=== PATIENT | male | born 1930 | race Caucasian/White ===

== ENCOUNTER 2017-02-26 10:10 | Emergency (ER) | payer MEDICARE, OTHER ==
--- NOTE | 2017-02-26 10:27 | ED Physician Documentation ---
General Adult - HPI Stated Complaint: Hypotension Chief Complaint: General Adult Additional Information: sent from [place] with low systolic BP. Stated as "70's" , he has no complaints and doesn't understand why they called the ambulance. Must have some dementia, No complaints Onset: minutes Timing: better, gone now Severity: mild Further Comments: no - ROS CONST: no problems EYES/ENT: none CVS/RESP: none GI/: none MS/SKIN/LYMPH: none NEURO/PSYCH: denies: headache, fainting, dizziness, numbness, difficulty with speech - PAST HX Past History: CHF, hypertension Other History: diabetes Type 1 Surgeries/Procedures: none Immunizations: UTD Allergies/Adverse Reactions: Allergies Allergy/AdvReac Type Severity Reaction Status Date / Time No Known Allergies Allergy Verified 05/11/16 14:17 Home Medications: Ambulatory Orders Medication Instructions Recorded Acetaminophen [Tylenol] 1 - 2 tab PO Q4-6 PRN 08/30/16 Aspirin [Cj] 81 mg PO DAILY 08/30/16 Atenolol [Tenormin] 12.5 mg PO BID 08/30/16 Ferrous Sulfate [Feosol] 325 mg PO BID 08/30/16 Furosemide [Lasix] 20 mg PO DAILY 08/30/16 Insulin Glargine,Hum.rec.anlog 10 unit SQ HS 08/30/16 [Lantus Solostar] Insulin Regular, Human [Novolin R] 10 unit IJ AM 08/30/16 Insulin Regular, Human [Novolin R] 15 unit IJ 12 08/30/16 Insulin Regular, Human [Novolin R] 15 unit IJ 17 08/30/16 Isosorbide Mononitrate [Imdur] 30 mg PO DAILY 08/30/16 Levothyroxine Sodium [Synthroid] 50 mcg PO 07 08/30/16 Lisinopril [Prinivil] 2.5 mg PO HS 08/30/16 Multivitamin [Tab-A-Amol] 1 each PO DAILY 08/30/16 Nitroglycerin [Nitroquick] 0.4 mg SL Q5M PRN 08/30/16 Zearing-3 Fatty Acids/Fish Oil [Fish 1 each PO BID 08/30/[address] 1,000 mg Softgel] Polyethylene Glycol 3350 [Miralax] 17 gm PO 1100 08/30/16 Pravastatin Sodium [Pravachol] 20 mg PO HS 08/30/16 gliPIZIDE [Glucotrol] 5 mg PO 0730 08/30/16 traMADol HCL [Ultram] 50 mg PO Q6H PRN 08/30/16 Amlodipine Besylate [Amlodipine 5 mg PO DAILY 02/26/17 Besylate] Clopidogrel Bisulfate [Clopidogrel] 75 mg PO DAILY 02/26/17 Ondansetron HCl Rapdis [Zofran Odt] 4 mg PO Q4 PRN 02/26/17 - SOCIAL HX Smoking History: non-smoker Alcohol Use: none Drug Use: none - FAMILY HX Family History: No - VITAL SIGNS Vital Signs: Vital Signs Temp Pulse Resp BP Pulse Ox 97.1 F L 64 18 122/59 96 02/26/17 10:10 02/26/17 10:10 02/26/17 10:10 02/26/17 10:10 02/26/17 10:10 - REVIEWED ASSESSMENTS Nursing Assessment Reviewed: Yes Vitals Reviewed: Yes ED Results Lab/Radiology - Lab Results Lab Results: UA = WBC +++ , + nitrites, BNP 956 - Orders Orders: ED Orders Category Date Time Status Place Saline Lock/IV Now Care 02/26/17 10:22 Ordered BNP [NT-proBNP] Stat Lab 02/26/17 Ordered CBC/PLATELET/DIFF Routine Lab 02/26/17 Ordered CMP Routine Lab 02/26/17 Ordered CREATINE KINASE Routine Lab 02/26/17 Ordered URINALYSIS Routine Lab 02/26/17 Ordered RINGERS SOLUTION,LACTATED @ 100 MLS/HR(1000ml) Med 02/26/17 10:30 Ordered Lactated Ringers [Ringers, Lactated] 1,000 ml IV Q10H General Adult Physical Exam - PHYSICAL EXAM GENERAL APPEARANCE: no distress EENT: eye inspection normal, ENT inspection normal, pharynx normal, no signs of dehydration NECK: normal inspection, supple. No: carotid bruit RESPIRATORY: no resp distress, breath sounds normal CVS: reg rate & rhythm, equal pulses ABDOMEN: soft, no distension SKIN: warm/dry, normal color EXTREMITIES: non-tender NEURO: oriented X3 Discharge Clincal Impression: Elevated brain natriuretic peptide (BNP) level, Hyperglycemia due to type 1 diabetes mellitus, Catheter (urine) change required UTI (urinary tract infection) Qualifiers: Urinary tract infection type: catheter-associated UTI Indwelling urinary catheter type: indwelling urethral catheter Encounter type: initial encounter Qualified Code(s): T83.511A - Infection and inflammatory reaction due to indwelling urethral catheter, initial encounter; N39.0 - Urinary tract infection , site not specified Home Medications: Ambulatory Orders Acetaminophen [Tylenol] 1 - 2 tab PO Q4-6 PRN 08/30/16 Aspirin [Cj] 81 mg PO DAILY 08/30/16 Atenolol [Tenormin] 12.5 mg PO BID 08/30/16 Ferrous Sulfate [Feosol] 325 mg PO BID 08/30/16 Furosemide [Lasix] 20 mg PO DAILY 08/30/16 Insulin Glargine,Hum.rec.anlog [Lantus Solostar] 10 unit SQ HS 08/30/16 Insulin Regular, Human [Novolin R] 10 unit IJ AM 08/30/16 Insulin Regular, Human [Novolin R] 15 unit IJ 12 08/30/16 Insulin Regular, Human [Novolin R] 15 unit IJ 17 08/30/16 Isosorbide Mononitrate [Imdur] 30 mg PO DAILY 08/30/16 Levothyroxine Sodium [Synthroid] 50 mcg PO 07 08/30/16 Lisinopril [Prinivil] 2.5 mg PO HS 08/30/16 Multivitamin [Tab-A-Amol] 1 each PO DAILY 08/30/16 Nitroglycerin [Nitroquick] 0.4 mg SL Q5M PRN 08/30/16 Zearing-3 Fatty Acids/Fish Oil [Fish Oil Dr 1,000 mg Softgel] 1 each PO BID Polyethylene Glycol 3350 [Miralax] 17 gm PO 1100 08/30/16 Pravastatin Sodium [Pravachol] 20 mg PO HS 08/30/16 gliPIZIDE [Glucotrol] 5 mg PO 0730 08/30/16 traMADol HCL [Ultram] 50 mg PO Q6H PRN 08/30/16 Amlodipine Besylate [Amlodipine Besylate] 5 mg PO DAILY 02/26/17 Clopidogrel Bisulfate [Clopidogrel] 75 mg PO DAILY 02/26/17 Ondansetron HCl Rapdis [Zofran Odt] 4 mg PO Q4 PRN 02/26/17 Condition: Good Disposition: 01 HOME, SELF-CARE Decision to Admit: NO Date of Decison to Admit: 02/26/17 Decision Time: 12:15
[2017-02-26] MEDS ORDERED: LACTATED RINGERS 1,000 ML IV SCH (10:30)
[2017-02-26 11:17] LABS: BASOPHILS % 0.5 (0.0-1.5); EOSINOPHILS % 3.6 % (0.0-6.8); LYMPHOCYTES # 1.2 # k/uL (0.6-4.0); MEAN CORPUSCULAR HEMOGLOBIN 28.5 pg (28.0-34.0); MONOCYTES # 0.5 # k/uL (0.0-0.9); MONOCYTES % 5.9 % (0.0-11.0); NEUTROPHILS # 6.8 # k/uL (1.4-7.7)
[2017-02-26 12:35] VITALS: BP 115/59
[2017-02-27 05:50] LABS: APPEARANCE,URINE CLEAR (CLEAR); COLOR,URINE YELLOW (YELLOW); OCCULT BLOOD,URINE 2+ (NEGATIVE); UROBILINOGEN URINE 0.2 Eu (0.2-1.0)
== END 2017-02-26 12:30 | disposition home or self-care (01) ==
LOC: ED 10:10
DX: T83.511A Infection and inflammatory reaction due to indwelling urethral catheter, initial encounter (principal); X58.XXXA Exposure to other specified factors, initial encounter; Y93.9 Activity, unspecified; Y99.9 Unspecified external cause status; E11.65 Type 2 diabetes mellitus with hyperglycemia
CPT/HCPCS: 80053; 81002; 82550; 83880; 85025; 87086; 96360; 99283; J7120

== ENCOUNTER 2018-04-09 15:05 | Inpatient (IN) | payer MEDICARE, OTHER ==
--- NOTE | 2018-04-09 18:06 | History and Physical Report ---
History of Present Illnes - History of Present Illness [facility] History of Present Illness: 87-year-old white male who is admitted to the [facility] for further rehab services. Patient was admitted to [facility] on 04/03/2018 after he had a hypoglycemic episode and was not feeling well. Patient was found to be markedly anemic with the hemoglobin in the 7s. Patient was subsequently transfused three units of packed RBCs. Last ported hemoglobin was 8.4. Patient did have an endoscopy done which did show 3 to 4 duodenal ulcers that were no longer bleeding. Patient has been placed on the proton pump inhibitor. Other medical problems include chronic kidney disease with the GFR in the mid 20 range. Patient recently has had a urinary tract infection and is currently under treatment for this. Patient has chronic urinary retention with a chronic indwelling Flores catheter. Patient has a history of congestive heart failure. Patient BNP was 5956. Patient also has a history of coronary artery disease which is been stable. Hypertension has been stable. Patient has a history of hypothyroidism which is been stable. 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 Patient was also recently found to have multiple diverticula I would no evidence of diverticulitis. Patient was transferred to this institution further rehab services. Patient has been living in an assisted living environment at [facility] prior to his recent hospitalization. At one time patient was placed on hospice because of his dwindling medical condition. However patient has been removed off of hospice to have surgery done for a skin cancer on his hand. Patient was not been placed back on hospice at that time - Past Medical History Cardiac: CAD, CHF, HTN, DC FAMILY MEDICINE RESIDENT: Dementia Gastrointestinal: Constipation, Diverticulosis, GI bleed, Other (duodenal ulcer) Heme/Onc: Other (Anemia due to GI blood loss, history of bladder, prostate and skin cancer) Renal/: Chronic renal insuff, Benign prostatic enlarg. Endocrine: Diabetes, Hypothyroidism Dermatology: Squamous cell - Past Surgical History Past Surgical History: CABG - Past Social History Smoke: No Occupation: retired Alcohol: None Drugs: None Lives: With Family, Other ([facility] is living at [facility] before) - Health Maintenance Health Maintenance: Influenza Vaccine, Pneumococcal Vaccine Influenza Vaccine: Current for this Influenza Season Pneumonia Vaccine: Yes Resuscitation Status: no prolong resuscitation - Unable to Obtain History Unable to Obtain: Yes Review of Systems - Review of Systems Constitutional: Weakness, Malaise. negative: Fever, Chills Eyes: negative: pain ENT: negative: Ear Pain, Ear Discharge, Nose Discharge, Nose Congestion, Mouth Pain, Mouth Swelling, Throat Pain, Throat Swelling Respiratory: Shortness of Breath, SOB with Excertion. negative: Cough, Hemoptysis, Sputum, Wheezing Cardiovascular: negative: Chest Pain, Palpitations, Orthopnea Gastrointestinal: negative: Nausea, Vomiting, Abdominal Pain, Diarrhea, Constipation Genitourinary: negative: Dysuria, Frequency, Incontinence Musculoskeletal: Back Pain. negative: Neck Pain Skin: negative: Rash Neurological: Weakness. negative: Numbness, Incoordination, Change in Speech, Confusion - Medications/Allergies Allergies/Adverse Reactions: Allergies Allergy/AdvReac Type Severity Reaction Status Date / Time No Known Allergies Allergy Verified 05/11/16 14:17 Home Medications: Home Medications Acetaminophen [Tylenol] 1 - 2 tab PO Q4 PRN 04/09/18 Cranberry 500 mg PO DAILY 04/09/18 Dextran 70/Hypromellose [Nature's Tears Eye Drops] 1 drop OP QID PRN 04/09/18 Fluticasone Propionate [Flonase] 1 spray JORGE D 04/09/18 Ipratropium/Albuterol Sulfate [Duoneb] 3 ml INH QID PRN 04/09/18 Isosorbide Mononitrate [Imdur] 30 mg PO D 04/09/18 LORazepam [Ativan] 0.5 mg PO Q4 PRN 04/09/18 Lactobacillus Acidophilus [Acidophilus Probiotic] 0.5 mg PO D 04/09/18 Levofloxacin [Levaquin] 250 mg PO [id number] 04/09/18 Multivitamin [Multiple Vitamins] 1 each PO D 04/09/18 Nitroglycerin 0.4 mg SL Q5MIN PRN 04/09/18 Pantoprazole Sodium [Protonix] 40 mg PO 717 04/09/18 Exam - Exam Vital Signs: Vital Signs (72 hours) 04/09/18 15:37 Temperature 98.2 F Pulse Rate [ 61 Right] Respiratory 35 H Rate Blood Pressure 154/62 [Right Arm] O2 Sat by Pulse 96 Oximetry General: Oriented to Person, Cooperative, No acute distress. No: Oriented to Place, Oriented to Time HEENT: Atraumatic, PERRLA, Mouth Mucous membr. moist/[place], Poor Dentition, Decreased Hearing Acuity Neck: Normal Range of Motion Carotids: WNL Thyroid: WNL Lungs: Clear to auscultation, Normal air movement, Speaks full Sentences. No: Respiratory Distress, Wheezes, Rales, Rhonchi, Stridor Cardiovascular: Regular rate, Normal S1, Normal S2, No murmurs. No: Gallops, Rubs, Murmur Abdomen: Normal bowel sounds, Soft, No tenderness, No hepatospenomegaly, No masses Genitourinary: Other (penial erosion due to cath) Integumentary: Normal, [place], Warm, Dry Extremities: No clubbing, No cyanosis Neurological: Normal speech, Strength Equal Bilat, Normal tone Psych/Mental Status: No: Mental status NL, Mood NL, Appropriate Affect, Intact Judgment (confused) Assessment/Plan - Assessment/Plan (1) Gait disturbance Status: Acute Current Visit: Yes (2) CAD (coronary artery disease) Status: Acute Current Visit: Yes Qualifiers: Coronary Disease-Associated Artery/Lesion type: [place] artery [place] vs. transplanted heart: [place] heart Associated angina: without angina Qualified Code(s): I25.10 - Atherosclerotic heart disease of [place] coronary artery without angina pectoris (3) CHF (congestive heart failure) Status: Chronic Current Visit: Yes Qualifiers: Heart failure type: combined systolic and diastolic (4) DM type 2 causing CKD stage 3 Status: Chronic Current Visit: Yes Assessment: monitor BS (5) CKD (chronic kidney disease) stage 3, GFR 30-59 ml/min Status: Chronic Current Visit: Yes (6) Hypothyroidism Status: Chronic Current Visit: Yes Assessment: continue home meds (7) Osteoarthritis Status: Chronic Current Visit: Yes Assessment: continue home meds (8) Bladder cancer Status: Chronic Current Visit: Yes Assessment: stable (9) Prostate cancer Status: Chronic Current Visit: Yes Assessment: stable (10) Status post CVA Status: Chronic Current Visit: Yes Assessment: monitor mental status and neuro exam (11) Anemia Status: Chronic Current Visit: Yes (12) UTI (urinary tract infection) Status: Acute Current Visit: No Qualifiers: Urinary tract infection type: catheter-associated UTI Indwelling urinary catheter type: indwelling urethral catheter Encounter type: initial encounter Qualified Code(s): T83.511A - Infection and inflammatory reaction due to indwelling urethral catheter, initial encounter; N39.0 - Urinary tract infection , site not specified Assessment: finish antibiotic therapy (13) Urinary retention Status: Chronic Current Visit: No Assessment: continue with flores cath VTE Assessment - RISK FACTOR SCORE VTE RISK FACTOR SCORES: AGE OVER 60 YEARS, ANTICIPATED BED CONFINEMENT OR IMMOBILIZATION > 24 HOURS - RISK VTE MODERATE RISK: SCORE OF 2 (RISK PROXIMAL DVT 2-4%) PROPHYAXIS NEEDED (hold off on DVT prophalaxsis until Ulcers heal better,)
[2018-04-09] MEDS ORDERED: IPRATROPIUM/ALBUTEROL SULFATE 3 ML AMPUL.NEB NEB PRN (18:21)
[2018-04-09] MEDS ORDERED: traMADol HCL 50 MG TABLET PO PRN (18:27)
[2018-04-09] MEDS ORDERED: LORazepam 0.5 MG TABLET PO PRN (18:27)
[2018-04-09] MEDS ORDERED: ONDANSETRON HCL 4 MG TAB.RAPDIS PO PRN (18:27)
[2018-04-09] MEDS ORDERED: NITROGLYCERIN 0.4 MG TAB.SUBL SL PRN (18:27)
[2018-04-09] MEDS ORDERED: ACETAMINOPHEN 325 MG TABLET PO PRN (18:31)
[2018-04-09] MEDS ORDERED: ENOXAPARIN SODIUM 30 MG/0.3 ML DISP.SYRIN SQ SCH (19:00)
[2018-04-09] MEDS: FERROUS SULFATE 325 MG TABLET PO SCH (19:24)
[2018-04-09] MEDS: LACTOBACILLUS ACIDOPHILUS CAPS PO SCH (19:25)
[2018-04-09] MEDS: HYPROMELLOSE OPTH DROPS OP SCH ×2 (19:25→21:43)
[2018-04-09 20:05] VITALS: BMI 24.0
[2018-04-09] MEDS: PRAVASTATIN SODIUM 20 MG TABLET PO SCH (21:33)
[2018-04-09] MEDS: ATENOLOL 25 MG TABLET PO SCH (21:33)
[2018-04-09] MEDS: INSULIN REGULAR, HUMAN 100 UNIT/ML 3ML VIAL SQ SCH (21:38)
[2018-04-09] MEDS ORDERED: FUROSEMIDE 20 MG TABLET PO ONE (22:47)
[2018-04-10] MEDS: LEVOTHYROXINE SODIUM 50 MCG TABLET PO SCH (06:49)
[2018-04-10] MEDS: PANTOPRAZOLE SODIUM 40 MG TABLET PO SCH ×2 (06:50→16:38)
[2018-04-10 07:22] LABS: BASOPHILS % 0.5 (0.0-1.5); MEAN CORPUSCULAR HEMOGLOBIN 28.9 pg (28.0-34.0); MEAN CORPUSCULAR VOLUME 100.5 fl (80.0-100.0); NEUTROPHILS # 10.9 # k/uL (1.4-7.7)
--- NOTE | 2018-04-10 07:56 | Diagnostic Imaging Report ---
OPAL WIN [facility] [id number] [facility] [address] [address] Report Submission Date: April 10, 2018 7:26:44 AM CDT Patient Study Name: WESLEY SANTOS Date: April 10, 2018 6:58:54 AM CDT Modality Type: DX Gender: M Description: CHEST : [birth year] Institution: [facility] Physician: OPAL WIN Examination: Portable chest History: Evaluate lungs. CHF (Hx) Comparison exam: None provided. Findings: Single view of the chest demonstrates a hypoventilated inspiratory effort resulting in crowding of the cardiac and mediastinal silhouette. Sternotomy wires. Vascular calcifications involving the aortic arch. Diffuse bilateral parenchymal haziness, left greater than right. Significant left midlung field parenchymal fullness and left apical capping. Articular degenerative changes and osteopenia. Impression: Left greater right infiltrate/effusion. Electronically signed on April 10, 2018 7:26:44 AM CDT by: Mauro LANDON
[2018-04-10] MEDS: ATENOLOL 25 MG TABLET PO SCH ×2 (08:14→20:37)
[2018-04-10] MEDS: ISOSORBIDE MONONITRATE 30 MG TAB.ER.24H PO SCH (08:17)
[2018-04-10] MEDS: FUROSEMIDE 40 MG TABLET PO SCH (08:17)
[2018-04-10] MEDS: MULTIVITAMIN 1 EACH TABLET PO SCH (08:18)
[2018-04-10] MEDS: HYPROMELLOSE OPTH DROPS OP SCH ×4 (08:19→20:36)
[2018-04-10] MEDS: INSULIN REGULAR, HUMAN 100 UNIT/ML 3ML VIAL SQ SCH ×3 (08:28→16:37)
[2018-04-10] MEDS: LACTOBACILLUS ACIDOPHILUS CAPS PO SCH ×2 (10:43→20:35)
[2018-04-10] MEDS: POLYETHYLENE GLYCOL 3350 17 GM POWD.PACK PO SCH (10:43)
[2018-04-10] MEDS: FLUTICASONE PROPIONATE 120 SPRAY/16 GR BOTTLE NS SCH (10:43)
[2018-04-10] MEDS: CRANBERRY FRUIT EXTRACT 405 MG PO SCH (10:43)
[2018-04-10] MEDS: FERROUS SULFATE 325 MG TABLET PO SCH ×2 (11:21→19:29)
[2018-04-10 17:02] LABS: TOTAL PROTEIN 6.1 g/dL (6.0-8.5)
[2018-04-10] MEDS: PRAVASTATIN SODIUM 20 MG TABLET PO SCH (20:36)
[2018-04-10] MEDS ORDERED: LEVOFLOXACIN 250 MG TABLET PO ONE (22:41)
[2018-04-11] MEDS: LEVOTHYROXINE SODIUM 50 MCG TABLET PO SCH (06:11)
[2018-04-11] MEDS: PANTOPRAZOLE SODIUM 40 MG TABLET PO SCH ×2 (06:12→17:56)
[2018-04-11] MEDS: LACTOBACILLUS ACIDOPHILUS CAPS PO SCH ×2 (08:55→20:41)
[2018-04-11] MEDS: HYPROMELLOSE OPTH DROPS OP SCH ×4 (08:57→20:42)
[2018-04-11] MEDS: FUROSEMIDE 40 MG TABLET PO SCH (08:58)
[2018-04-11] MEDS: ISOSORBIDE MONONITRATE 30 MG TAB.ER.24H PO SCH (08:58)
[2018-04-11] MEDS: LEVOFLOXACIN 250 MG TABLET PO SCH (08:59)
[2018-04-11] MEDS: MULTIVITAMIN 1 EACH TABLET PO SCH (08:59)
[2018-04-11] MEDS: ATENOLOL 25 MG TABLET PO SCH ×2 (09:11→20:49)
[2018-04-11] MEDS: FLUTICASONE PROPIONATE 120 SPRAY/16 GR BOTTLE NS SCH (09:11)
[2018-04-11] MEDS: CRANBERRY FRUIT EXTRACT 405 MG PO SCH (09:11)
[2018-04-11] MEDS: INSULIN REGULAR, HUMAN 100 UNIT/ML 3ML VIAL SQ SCH ×3 (10:12→17:30)
[2018-04-11] MEDS: FERROUS SULFATE 325 MG TABLET PO SCH ×2 (11:12→18:00)
[2018-04-11] MEDS: POLYETHYLENE GLYCOL 3350 17 GM POWD.PACK PO SCH (11:19)
[2018-04-11] MEDS: PRAVASTATIN SODIUM 20 MG TABLET PO SCH (20:48)
[2018-04-12] MEDS: LEVOTHYROXINE SODIUM 50 MCG TABLET PO SCH (06:28)
[2018-04-12] MEDS: PANTOPRAZOLE SODIUM 40 MG TABLET PO SCH ×2 (06:28→17:35)
[2018-04-12] MEDS: CRANBERRY FRUIT EXTRACT 405 MG PO SCH (09:50)
[2018-04-12] MEDS: FLUTICASONE PROPIONATE 120 SPRAY/16 GR BOTTLE NS SCH (09:52)
[2018-04-12] MEDS: LACTOBACILLUS ACIDOPHILUS CAPS PO SCH ×2 (09:52→20:42)
[2018-04-12] MEDS: ISOSORBIDE MONONITRATE 30 MG TAB.ER.24H PO SCH (09:53)
[2018-04-12] MEDS: FUROSEMIDE 40 MG TABLET PO SCH (09:53)
[2018-04-12] MEDS: HYPROMELLOSE OPTH DROPS OP SCH ×4 (09:54→20:43)
[2018-04-12] MEDS: ATENOLOL 25 MG TABLET PO SCH ×2 (09:55→20:44)
[2018-04-12] MEDS: MULTIVITAMIN 1 EACH TABLET PO SCH (09:55)
[2018-04-12] MEDS: INSULIN REGULAR, HUMAN 100 UNIT/ML 3ML VIAL SQ SCH ×4 (09:58→18:52)
[2018-04-12] MEDS: FERROUS SULFATE 325 MG TABLET PO SCH ×2 (10:45→19:02)
[2018-04-12] MEDS: POLYETHYLENE GLYCOL 3350 17 GM POWD.PACK PO SCH (10:45)
[2018-04-12] MEDS: PRAVASTATIN SODIUM 20 MG TABLET PO SCH (20:44)
[2018-04-13] MEDS: CRANBERRY FRUIT EXTRACT 405 MG PO SCH (08:16)
[2018-04-13] MEDS: ISOSORBIDE MONONITRATE 30 MG TAB.ER.24H PO SCH (08:16)
[2018-04-13] MEDS: LEVOTHYROXINE SODIUM 50 MCG TABLET PO SCH (08:16)
[2018-04-13] MEDS: FLUTICASONE PROPIONATE 120 SPRAY/16 GR BOTTLE NS SCH (08:17)
[2018-04-13] MEDS: LACTOBACILLUS ACIDOPHILUS CAPS PO SCH ×2 (08:17→20:07)
[2018-04-13] MEDS: FUROSEMIDE 40 MG TABLET PO SCH (08:18)
[2018-04-13] MEDS: HYPROMELLOSE OPTH DROPS OP SCH ×4 (08:18→20:08)
[2018-04-13] MEDS: MULTIVITAMIN 1 EACH TABLET PO SCH (08:18)
[2018-04-13] MEDS: LEVOFLOXACIN 250 MG TABLET PO SCH (08:19)
[2018-04-13] MEDS: ATENOLOL 25 MG TABLET PO SCH ×2 (08:19→20:09)
[2018-04-13] MEDS: PANTOPRAZOLE SODIUM 40 MG TABLET PO SCH ×2 (08:20→16:03)
[2018-04-13] MEDS: INSULIN REGULAR, HUMAN 100 UNIT/ML 3ML VIAL SQ SCH ×3 (08:46→16:11)
[2018-04-13] MEDS: FERROUS SULFATE 325 MG TABLET PO SCH ×2 (11:11→20:08)
[2018-04-13] MEDS: POLYETHYLENE GLYCOL 3350 17 GM POWD.PACK PO SCH (11:11)
[2018-04-13] MEDS: PRAVASTATIN SODIUM 20 MG TABLET PO SCH (20:09)
[2018-04-14] MEDS: LEVOTHYROXINE SODIUM 50 MCG TABLET PO SCH (06:36)
[2018-04-14] MEDS: PANTOPRAZOLE SODIUM 40 MG TABLET PO SCH ×2 (06:36→17:24)
[2018-04-14] MEDS: LACTOBACILLUS ACIDOPHILUS CAPS PO SCH ×2 (08:50→20:08)
[2018-04-14] MEDS: HYPROMELLOSE OPTH DROPS OP SCH ×4 (08:50→20:08)
[2018-04-14] MEDS: ATENOLOL 25 MG TABLET PO SCH ×2 (08:51→20:08)
[2018-04-14] MEDS: CRANBERRY FRUIT EXTRACT 405 MG PO SCH (08:51)
[2018-04-14] MEDS: ISOSORBIDE MONONITRATE 30 MG TAB.ER.24H PO SCH (08:51)
[2018-04-14] MEDS: FUROSEMIDE 40 MG TABLET PO SCH (08:52)
[2018-04-14] MEDS: MULTIVITAMIN 1 EACH TABLET PO SCH (08:52)
[2018-04-14] MEDS: INSULIN REGULAR, HUMAN 100 UNIT/ML 3ML VIAL SQ SCH ×3 (08:53→17:25)
[2018-04-14] MEDS: FLUTICASONE PROPIONATE 120 SPRAY/16 GR BOTTLE NS SCH (09:08)
[2018-04-14] MEDS: POLYETHYLENE GLYCOL 3350 17 GM POWD.PACK PO SCH (11:26)
[2018-04-14] MEDS: FERROUS SULFATE 325 MG TABLET PO SCH ×2 (11:26→18:02)
[2018-04-14] MEDS: PRAVASTATIN SODIUM 20 MG TABLET PO SCH (20:08)
[2018-04-15] MEDS: LEVOTHYROXINE SODIUM 50 MCG TABLET PO SCH (06:45)
[2018-04-15] MEDS: PANTOPRAZOLE SODIUM 40 MG TABLET PO SCH ×2 (06:46→17:21)
[2018-04-15] MEDS: HYPROMELLOSE OPTH DROPS OP SCH ×4 (08:47→20:33)
[2018-04-15] MEDS: LACTOBACILLUS ACIDOPHILUS CAPS PO SCH ×2 (08:47→20:33)
[2018-04-15] MEDS: CRANBERRY FRUIT EXTRACT 405 MG PO SCH (08:48)
[2018-04-15] MEDS: FLUTICASONE PROPIONATE 120 SPRAY/16 GR BOTTLE NS SCH (08:48)
[2018-04-15] MEDS: ATENOLOL 25 MG TABLET PO SCH ×2 (08:48→20:35)
[2018-04-15] MEDS: ISOSORBIDE MONONITRATE 30 MG TAB.ER.24H PO SCH (08:48)
[2018-04-15] MEDS: MULTIVITAMIN 1 EACH TABLET PO SCH (08:49)
[2018-04-15] MEDS: FUROSEMIDE 40 MG TABLET PO SCH (08:49)
[2018-04-15] MEDS: INSULIN REGULAR, HUMAN 100 UNIT/ML 3ML VIAL SQ SCH ×3 (08:51→16:37)
[2018-04-15] MEDS: POLYETHYLENE GLYCOL 3350 17 GM POWD.PACK PO SCH (10:58)
[2018-04-15] MEDS: FERROUS SULFATE 325 MG TABLET PO SCH ×2 (10:58→18:33)
[2018-04-15] MEDS: PRAVASTATIN SODIUM 20 MG TABLET PO SCH (20:32)
[2018-04-16] MEDS: PANTOPRAZOLE SODIUM 40 MG TABLET PO SCH ×2 (06:05→16:55)
[2018-04-16] MEDS: LEVOTHYROXINE SODIUM 50 MCG TABLET PO SCH (06:05)
[2018-04-16] MEDS: CRANBERRY FRUIT EXTRACT 405 MG PO SCH (09:07)
[2018-04-16] MEDS: LACTOBACILLUS ACIDOPHILUS CAPS PO SCH ×2 (09:07→20:15)
[2018-04-16] MEDS: FLUTICASONE PROPIONATE 120 SPRAY/16 GR BOTTLE NS SCH (09:07)
[2018-04-16] MEDS: INSULIN REGULAR, HUMAN 100 UNIT/ML 3ML VIAL SQ SCH ×3 (09:08→16:49)
[2018-04-16] MEDS: ISOSORBIDE MONONITRATE 30 MG TAB.ER.24H PO SCH (09:09)
[2018-04-16] MEDS: FUROSEMIDE 40 MG TABLET PO SCH (09:09)
[2018-04-16] MEDS: MULTIVITAMIN 1 EACH TABLET PO SCH (09:09)
[2018-04-16] MEDS: ATENOLOL 25 MG TABLET PO SCH ×2 (09:12→20:18)
[2018-04-16] MEDS: HYPROMELLOSE OPTH DROPS OP SCH ×4 (10:49→20:15)
[2018-04-16] MEDS: POLYETHYLENE GLYCOL 3350 17 GM POWD.PACK PO SCH (11:09)
[2018-04-16] MEDS: FERROUS SULFATE 325 MG TABLET PO SCH ×2 (11:09→20:14)
[2018-04-16] MEDS: PRAVASTATIN SODIUM 20 MG TABLET PO SCH (20:15)
[2018-04-17] MEDS: LEVOTHYROXINE SODIUM 50 MCG TABLET PO SCH (06:23)
[2018-04-17] MEDS: PANTOPRAZOLE SODIUM 40 MG TABLET PO SCH ×2 (06:23→16:42)
[2018-04-17] MEDS: FLUTICASONE PROPIONATE 120 SPRAY/16 GR BOTTLE NS SCH (08:09)
[2018-04-17] MEDS: CRANBERRY FRUIT EXTRACT 405 MG PO SCH (08:09)
[2018-04-17] MEDS: LACTOBACILLUS ACIDOPHILUS CAPS PO SCH ×2 (08:09→20:27)
[2018-04-17] MEDS: ISOSORBIDE MONONITRATE 30 MG TAB.ER.24H PO SCH (08:10)
[2018-04-17] MEDS: MULTIVITAMIN 1 EACH TABLET PO SCH (08:13)
[2018-04-17] MEDS: HYPROMELLOSE OPTH DROPS OP SCH ×4 (08:13→20:27)
[2018-04-17] MEDS: ATENOLOL 25 MG TABLET PO SCH ×2 (08:18→20:32)
[2018-04-17] MEDS: FUROSEMIDE 40 MG TABLET PO SCH (08:18)
[2018-04-17] MEDS ORDERED: TAMSULOSIN HCL 0.4 MG CAP.ER.24H PO ONE (08:33)
[2018-04-17] MEDS: INSULIN REGULAR, HUMAN 100 UNIT/ML 3ML VIAL SQ SCH ×2 (09:00→12:05)
[2018-04-17] MEDS: FERROUS SULFATE 325 MG TABLET PO SCH ×2 (11:08→20:26)
[2018-04-17] MEDS: POLYETHYLENE GLYCOL 3350 17 GM POWD.PACK PO SCH (11:08)
[2018-04-17] MEDS ORDERED: INSULIN REGULAR, HUMAN 100 UNIT/ML 3ML VIAL SQ SCH (16:30)
[2018-04-17] MEDS: PRAVASTATIN SODIUM 20 MG TABLET PO SCH (20:28)
[2018-04-18] MEDS ORDERED: LEVOTHYROXINE SODIUM 25 MCG TABLET ONE (05:22)
[2018-04-18] MEDS: LEVOTHYROXINE SODIUM 50 MCG TABLET PO SCH (06:23)
[2018-04-18] MEDS: PANTOPRAZOLE SODIUM 40 MG TABLET PO SCH (06:24)
[2018-04-18] MEDS: INSULIN REGULAR, HUMAN 100 UNIT/ML 3ML VIAL SQ SCH (07:45)
[2018-04-18 08:39] VITALS: BP 130/41
[2018-04-18] MEDS: FUROSEMIDE 40 MG TABLET PO SCH (08:39)
[2018-04-18] MEDS: ISOSORBIDE MONONITRATE 30 MG TAB.ER.24H PO SCH (08:40)
[2018-04-18] MEDS: CRANBERRY FRUIT EXTRACT 405 MG PO SCH (08:40)
[2018-04-18] MEDS: LACTOBACILLUS ACIDOPHILUS CAPS PO SCH (08:40)
[2018-04-18] MEDS: HYPROMELLOSE OPTH DROPS OP SCH (08:40)
[2018-04-18] MEDS: MULTIVITAMIN 1 EACH TABLET PO SCH (08:40)
[2018-04-18] MEDS: FLUTICASONE PROPIONATE 120 SPRAY/16 GR BOTTLE NS SCH (08:40)
[2018-04-18] MEDS: ATENOLOL 25 MG TABLET PO SCH (08:41)
--- NOTE | 2018-04-18 08:49 | Inpatient Progress Note ---
Subjective - Required Recertification Statement I anticipate X number of days because-include discharge plan: 14 days - Review of Systems Events since last encounter: Patient seems to be doing well at this time. No complaints . Patient is not participating with rehab services as ambitiously as we have hope. Patient does not moisten complaints. General: Denies: Chills HEENT: Denies: Head Aches Pulmonary: Denies: Dyspnea, Cough Cardiovascular: Denies: Chest Pain, Palpitations, Orthopnea Gastrointestinal: Denies: Nausea, Vomiting, Abdominal Pain, Diarrhea, Constipation Genitourinary: Denies: Dysuria Objective - Exam Vitals and I&O: Vital Signs Temp 97.4 F L 04/18/18 08:37 Pulse 57 L 04/18/18 08:37 Resp 18 04/18/18 08:37 BP 130/41 04/18/18 08:37 Pulse Ox 98 04/18/18 08:37 Intake & Output 04/17/18 04/17/18 04/18/18 11:59 23:59 11:59 Intake Total 840 1100 240 Output Total 300 775 Balance 840 800 -535 Intake: Oral 840 1100 240 Output: Urine 300 775 Other: Voiding Method Indwelling Catheter Indwelling Catheter # Voids 1 General: Oriented to Person, Oriented to Place, Cooperative. No: Alert ( lethargic, hard to wake up), Oriented to Time HEENT: Atraumatic Neck: Supple, No JVD Lungs: Clear to auscultation, Normal air movement, Speaks full Sentences. No: Wheezes, Rales, Rhonchi Cardiovascular: Regular rate, Normal S1, Normal S2, No murmurs Abdomen: Normal bowel sounds, Soft, No tenderness, No hepatospenomegaly Extremities: No clubbing, No cyanosis, No edema Skin: Normal, [place], Warm, Dry Neurological: Normal speech, Other (generalized weakness) Psych/Mental Status: Mental status NL, Other (depression) - Results Results: Laboratory Results WBC 13.00 K/ul (4.00-12.00) H 04/10/18 06:25 RBC 3.38 M/ul (3.90-5.20) L 04/10/18 06:25 Hgb 9.8 g/dL (12.0-18.0) L 04/10/18 06:25 Hct 33.9 % (37.0-53.0) L 04/10/18 06:25 MCV 100.5 fl (80.0-100.0) H 04/10/18 06:25 MCH 28.9 pg (28.0-34.0) 04/10/18 06:25 MCHC 28.7 g/dL (30.0-36.0) L 04/10/18 06:25 RDW 14.7 % (11.3-14.3) H 04/10/18 06:25 Plt Count 368 K/mm3 (130-400) 04/10/18 06:25 Neut % (Auto) 84.3 % (39.0-79.0) H 04/10/18 06:25 Lymph % (Auto) 6.9 % (16.0-50.0) L 04/10/18 06:25 [place] % (Auto) 4.0 % (0.0-11.0) 04/10/18 06:25 Eos % (Auto) 3.0 % (0.0-6.8) 04/10/18 06:25 Baso % (Auto) 0.5 (0.0-1.5) 04/10/18 06:25 Neut # (Auto) 10.9 # k/uL (1.4-7.7) H 04/10/18 06:25 Lymph # (Auto) 0.9 # k/uL (0.6-4.0) 04/10/18 06:25 [place] # (Auto) 0.5 # k/uL (0.0-0.9) 04/10/18 06:25 Eos # (Auto) 0.4 # k/uL (0.0-0.6) 04/10/18 06:25 Baso # (Auto) 0.1 # k/uL (0.0-0.5) 04/10/18 06:25 Reactive Lymphs % 1.3 % (0.0-5.0) 04/10/18 06:25 Reactive Lymphs # 0.2 # k/uL (0.0-0.8) 04/10/18 06:25 Sodium 141 mmol/L (136-145) 04/10/18 06:25 Potassium 4.2 mmol/L (3.5-5.1) 04/10/18 06:25 Chloride 106 mmol/L (98-107) 04/10/18 06:25 Total Carbon Dioxide 24 mmol/L (22-29) 04/10/18 06:25 BUN 45 mg/dL (6-20) H 04/10/18 06:25 Creatinine 2.17 mg/dL (0.40-1.50) H 04/10/18 06:25 Estimated GFR mL/min 26 L 04/10/18 06:25 Glucose 174 mg/dL (70-99 Fasting) H 04/10/18 06:25 Calcium 8.3 mg/dL (8.6-10.2) L 04/10/18 06:25 Total Bilirubin <0.3 mg/dL (<1.2) 04/10/18 06:25 AST 13 U/L (<40) 04/10/18 06:25 ALT 6 U/L (<42) 04/10/18 06:25 Alkaline Phosphatase 61 U/L (40-129) 04/10/18 06:25 Total Protein 6.1 g/dL (6.0-8.5) 04/10/18 06:25 Albumin 2.7 g/dL (3.5-5.2) L 04/10/18 06:25 Assessment/Plan - Assessment/Plan (1) Gait disturbance Status: Acute Assessment: Patient is needing encouragement to participate with therapy. (2) CAD (coronary artery disease) Status: Acute Qualifiers: Coronary Disease-Associated Artery/Lesion type: [place] artery [place] vs. transplanted heart: [place] heart Associated angina: without angina Qualified Code(s): I25.10 - Atherosclerotic heart disease of [place] coronary artery without angina pectoris Assessment: stable (3) CHF (congestive heart failure) Status: Chronic Qualifiers: Heart failure type: combined systolic and diastolic Assessment: stable (4) DM type 2 causing CKD stage 3 Status: Chronic Assessment: stable (5) CKD (chronic kidney disease) stage 3, GFR 30-59 ml/min Status: Chronic Assessment: stable (6) Osteoarthritis Status: Chronic (7) Status post CVA Status: Chronic (8) Anemia Status: Chronic Assessment: Hgb 9.8 stable (9) UTI (urinary tract infection) Status: Acute Qualifiers: Urinary tract infection type: catheter-associated UTI Indwelling urinary catheter type: indwelling urethral catheter Encounter type: initial encounter Qualified Code(s): T83.511A - Infection and inflammatory reaction due to indwelling urethral catheter, initial encounter; N39.0 - Urinary tract infection , site not specified Assessment: finishing antibiotic
--- NOTE | 2018-04-18 08:53 | Discharge Summary ---
Discharge Summary - Discharge Sumary History of Present Illness: 87-year-old white male who is admitted to the [facility] for further rehab services. Patient was admitted to [facility] on 04/03/2018 after he had a hypoglycemic episode and was not feeling well. Patient was found to be markedly anemic with the hemoglobin in the 7s. Patient was subsequently transfused three units of packed RBCs. Last reported hemoglobin was 8.4. Patient did have an endoscopy done which did show 3 to 4 duodenal ulcers that were no longer bleeding. Patient has been placed on the proton pump inhibitor. Other medical problems include chronic kidney disease with the GFR in the mid 20 range. Patient recently has had a urinary tract infection and is currently under treatment for this. Patient has chronic urinary retention with a chronic indwelling [place] catheter. Patient has a history of congestive heart failure. Patient BNP was 5956. Patient also has a history of coronary artery disease which is been stable. Hypertension has been stable. Patient has a history of hypothyroidism which is been stable. 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 Patient was also recently found to have multiple diverticula I would no evidence of diverticulitis. Patient was transferred to this institution further rehab services. Patient has been living in an assisted living environment at [facility] prior to his recent hospitalization. At one time patient was placed on hospice because of his dwindling medical condition. However patient has been removed off of hospice to have surgery done for a skin cancer on his hand. Patient was not been placed back on hospice at that time Home Medications: Ambulatory Orders Medication Instructions Recorded Insulin Regular, Human [Novolin R] 10 unit IJ AM 08/30/16 Insulin Regular, Human [Novolin R] 15 unit IJ 12 08/30/16 Insulin Regular, Human [Novolin R] 15 unit IJ 17 08/30/16 Levothyroxine Sodium [Synthroid] 50 mcg PO 07 08/30/16 Polyethylene Glycol 3350 [Miralax] 17 gm PO 1100 08/30/16 traMADol HCL [Ultram] 50 mg PO Q6H PRN 08/30/16 Ondansetron HCl Rapdis [Zofran ODT] 4 mg PO Q4 PRN 02/26/17 Acetaminophen [Tylenol] 1 - 2 tab PO Q4 PRN 04/09/18 Dextran 70/Hypromellose [Nature's 1 drop OP QID PRN 04/09/18 Tears Eye Drops] Fluticasone Propionate [Flonase] 1 spray JORGE D 04/09/18 Ipratropium/Albuterol Sulfate 3 ml INH QID PRN 04/09/18 [Duoneb] Isosorbide Mononitrate [Imdur] 30 mg PO D 04/09/18 LORazepam [Ativan] 0.5 mg PO Q4 PRN 04/09/18 Nitroglycerin 0.4 mg SL Q5MIN PRN 04/09/18 Allergies/Adverse Reactions: Allergies Allergy/AdvReac Type Severity Reaction Status Date / Time No Known Allergies Allergy Verified 05/11/16 14:17 Discharge Summary: Patient has done well with PT and OT. Participated well. Still remains somewhat weak at the time of discharge. Patient feels that he can mangae at home with home health at this time. Spouse is agreeable to try taking the patient home. - Final Diagnosis (1) Gait disturbance Problems: improved (2) CAD (coronary artery disease) Problems: stable on home medications (3) CHF (congestive heart failure) Problems: stable on home medications (4) DM type 2 causing CKD stage 3 Problems: stable, medication adjusted
--- NOTE | 2018-04-18 08:53 | History and Physical Report ---
History of Present Illnes - Past Medical History Cardiac: CAD, CHF, HTN, [place] [employer]: Dementia Gastrointestinal: Constipation, Diverticulosis, GI bleed, Other (duodenal ulcer) Heme/Onc: Other (Anemia due to GI blood loss, history of bladder, prostate and skin cancer) Renal/: Chronic renal insuff, Benign prostatic enlarg. Endocrine: Diabetes, Hypothyroidism Dermatology: Squamous cell - Past Surgical History Past Surgical History: CABG - Past Social History Smoke: No Occupation: retired Alcohol: None Drugs: None Lives: With Family, Other ([facility] is living at [facility] before) - Health Maintenance Health Maintenance: Influenza Vaccine, Pneumococcal Vaccine Resuscitation Status: Resusciation Status Resuscitation Status Do Not Resuscitate,No Prolong Resuscitation Review of Systems - Medications/Allergies Allergies/Adverse Reactions: Allergies Allergy/AdvReac Type Severity Reaction Status Date / Time No Known Allergies Allergy Verified 05/11/16 14:17 Home Medications: Home Medications Acetaminophen [Tylenol] 1 - 2 tab PO Q4 PRN 04/09/18 Dextran 70/Hypromellose [Nature's Tears Eye Drops] 1 drop OP QID PRN 04/09/18 Fluticasone Propionate [Flonase] 1 spray JORGE D 04/09/18 Ipratropium/Albuterol Sulfate [Duoneb] 3 ml INH QID PRN 04/09/18 Isosorbide Mononitrate [Imdur] 30 mg PO D 04/09/18 LORazepam [Ativan] 0.5 mg PO Q4 PRN 04/09/18 Nitroglycerin 0.4 mg SL Q5MIN PRN 04/09/18 Current Inpatient Medications: Current Inpatient Medications Acetaminophen (Tylenol) 325 - 650 mg PO Q4 PRN PRN Reason: pain or fever Last Admin: 04/09/18 21:33 Dose: 650 mg Albuterol/Ipratropium (Duoneb) 3 ml NEB QID PRN PRN Reason: dyspnea Artificial Tears (Nature's Tears Opth [place]) 1 drop OP QID IRENE Last Admin: 04/18/18 08:40 Dose: 1 drop Atenolol (Tenormin) 25 mg PO BID IRENE Last Admin: 04/18/18 08:41 Dose: 25 mg Ferrous Sulfate (Feosol) 325 mg PO [id number] [facility] Last Admin: 04/17/18 20:26 Dose: 325 mg Fluticasone Propionate (Flonase Nasal [place]) 1 spray NS D [facility] Last Admin: 04/18/18 08:40 Dose: 1 sprays Furosemide (Lasix) 20 mg PO DAILY [facility] Last Admin: 04/18/18 08:39 Dose: 20 mg Glipizide (Glucotrol) 5 mg PO [id number] [facility] Last Admin: 04/18/18 07:43 Dose: 5 mg Insulin Human Regular (Humulin R) 10 unit SQ AM [facility] Last Admin: 04/18/18 07:45 Dose: 10 units Insulin Human Regular (Humulin R) 15 unit SQ 12 [facility] Last Admin: 04/17/18 12:05 Dose: 15 units Insulin Human Regular (Humulin R) 5 unit SQ 17 [facility] Last Admin: 04/17/18 16:40 Dose: 5 unit Isosorbide Mononitrate (Imdur) 30 mg PO D [facility] Last Admin: 04/18/18 08:40 Dose: 30 mg Levothyroxine Sodium (Levothyroxine Sodium) 50 mcg PO 07 [facility] Last Admin: 04/18/18 06:23 Dose: 50 mcg Lorazepam (Ativan) 0.5 mg PO Q4 PRN PRN Reason: Anxiety Miscellaneous (Chem Sticks) 1 each MC CHEMQID [facility] Last Admin: 04/18/18 07:43 Dose: 1 each Multivitamins (Tab-A-Aoml) 1 each PO D [facility] Last Admin: 04/18/18 08:40 Dose: 1 each Nitroglycerin (Nitroquick) 0.4 mg SL Q5MIN PRN PRN Reason: Angina Ondansetron HCl (Zofran Odt) 4 mg PO Q4 PRN PRN Reason: Nausea / Vomiting Pantoprazole Sodium (Protonix) 40 mg PO 717 [facility] Last Admin: 04/18/18 06:24 Dose: 40 mg Polyethylene Glycol (Miralax) 17 gm PO 1100 [facility] Last Admin: 04/17/18 11:08 Dose: 17 gm Pravastatin Sodium (Pravachol) 20 mg PO HS [facility] Last Admin: 04/17/18 20:28 Dose: 20 mg Tramadol HCl (Ultram) 50 mg PO Q6H PRN PRN Reason: PAIN Exam - Exam Vital Signs: Vital Signs (72 hours) 04/15/18 04/15/18 04/16/18 09:00 21:00 09:00 Temperature 97.4 F L 97.5 F L 97.4 F L Pulse Rate [ Apical] Pulse Rate [ 61 58 L 64 Right] Respiratory 16 18 18 Rate Blood Pressure 146/81 [Left Arm] Blood Pressure 111/47 136/52 [Right Arm] O2 Sat by Pulse 96 98 100 Oximetry 04/16/18 04/16/18 04/17/18 20:43 20:45 08:36 Temperature 96.9 F L 98.2 F Pulse Rate [ Apical] Pulse Rate [ 52 L 52 L 57 L Right] Respiratory 18 18 18 Rate Blood Pressure [Left Arm] Blood Pressure 124/44 146/54 [Right Arm] O2 Sat by Pulse 100 99 Oximetry 04/17/18 04/18/18 21:00 08:37 Temperature 98.5 F 97.4 F L Pulse Rate [ 65 Apical] Pulse Rate [ 57 L Right] Respiratory 18 18 Rate Blood Pressure [Left Arm] Blood Pressure 139/53 130/41 [Right Arm] O2 Sat by Pulse 97 98 Oximetry - Laboratory Results Laboratory Results: Laboratory Results 04/10/18 04/10/18 06:25 06:25 WBC 13.00 H RBC 3.38 L Hgb 9.8 L Hct 33.9 L MCV 100.5 H MCH 28.9 MCHC 28.7 L RDW 14.7 H Plt Count 368 Neut % (Auto) 84.3 H Lymph % (Auto) 6.9 L [place] % (Auto) 4.0 Eos % (Auto) 3.0 Baso % (Auto) 0.5 Neut # (Auto) 10.9 H Lymph # (Auto) 0.9 [place] # (Auto) 0.5 Eos # (Auto) 0.4 Baso # (Auto) 0.1 Reactive Lymphs % 1.3 Reactive Lymphs # 0.2 Sodium 141 Potassium 4.2 Chloride 106 Total Carbon Dioxide 24 BUN 45 H Creatinine 2.17 H Estimated GFR mL/min 26 L Glucose 174 H Calcium 8.3 L Total Bilirubin <0.3 AST 13 ALT 6 Alkaline Phosphatase 61 Total Protein 6.1 Albumin 2.7 L Assessment/Plan - Assessment/Plan (1) Gait disturbance Status: Acute Current Visit: Yes (2) CAD (coronary artery disease) Status: Acute Current Visit: Yes Qualifiers: Coronary Disease-Associated Artery/Lesion type: [place] artery [place] vs. transplanted heart: [place] heart Associated angina: without angina Qualified Code(s): I25.10 - Atherosclerotic heart disease of [place] coronary artery without angina pectoris (3) CHF (congestive heart failure) Status: Chronic Current Visit: Yes Qualifiers: Heart failure type: combined systolic and diastolic (4) DM type 2 causing CKD stage 3 Status: Chronic Current Visit: Yes (5) CKD (chronic kidney disease) stage 3, GFR 30-59 ml/min Status: Chronic Current Visit: Yes (6) Osteoarthritis Status: Chronic Current Visit: Yes (7) Status post CVA Status: Chronic Current Visit: Yes (8) Anemia Status: Chronic Current Visit: Yes (9) UTI (urinary tract infection) Status: Acute Current Visit: No Qualifiers: Urinary tract infection type: catheter-associated UTI Indwelling urinary catheter type: indwelling urethral catheter Encounter type: initial encounter Qualified Code(s): T83.511A - Infection and inflammatory reaction due to indwelling urethral catheter, initial encounter; N39.0 - Urinary tract infection , site not specified
--- NOTE | 2018-05-15 14:41 | Inpatient Progress Note ---
Subjective - Required Recertification Statement I anticipate X number of days because-include discharge plan: 7 - Review of Systems Events since last encounter: Patient is not participating with PT and OT as well as we would like. Patient states that he just does not want to do it at times. Oral intake is fair. Patient denies that he is in a lot of pain. Objective - Exam Vitals and I&O: Vital Signs Temp 97.4 F L 04/18/18 08:37 Pulse 57 L 04/18/18 09:00 Resp 18 04/18/18 09:00 BP 130/41 04/18/18 08:37 Pulse Ox 98 04/18/18 08:37 General: Alert, Oriented to Person Neck: Supple Lungs: Clear to auscultation, Normal air movement, Speaks full Sentences. No: Respiratory Distress, Wheezes, Rales, Rhonchi Cardiovascular: Regular rate, Normal S1, Normal S2 Abdomen: Normal bowel sounds, Soft, No tenderness Extremities: No clubbing Psych/Mental Status: No: Mood NL (depressed), Intact Judgment - Results Results: Laboratory Results WBC 13.00 K/ul (4.00-12.00) H 04/10/18 06:25 RBC 3.38 M/ul (3.90-5.20) L 04/10/18 06:25 Hgb 9.8 g/dL (12.0-18.0) L 04/10/18 06:25 Hct 33.9 % (37.0-53.0) L 04/10/18 06:25 MCV 100.5 fl (80.0-100.0) H 04/10/18 06:25 MCH 28.9 pg (28.0-34.0) 04/10/18 06:25 MCHC 28.7 g/dL (30.0-36.0) L 04/10/18 06:25 RDW 14.7 % (11.3-14.3) H 04/10/18 06:25 Plt Count 368 K/mm3 (130-400) 04/10/18 06:25 Neut % (Auto) 84.3 % (39.0-79.0) H 04/10/18 06:25 Lymph % (Auto) 6.9 % (16.0-50.0) L 04/10/18 06:25 [place] % (Auto) 4.0 % (0.0-11.0) 04/10/18 06:25 Eos % (Auto) 3.0 % (0.0-6.8) 04/10/18 06:25 Baso % (Auto) 0.5 (0.0-1.5) 04/10/18 06:25 Neut # (Auto) 10.9 # k/uL (1.4-7.7) H 04/10/18 06:25 Lymph # (Auto) 0.9 # k/uL (0.6-4.0) 04/10/18 06:25 [place] # (Auto) 0.5 # k/uL (0.0-0.9) 04/10/18 06:25 Eos # (Auto) 0.4 # k/uL (0.0-0.6) 04/10/18 06:25 Baso # (Auto) 0.1 # k/uL (0.0-0.5) 04/10/18 06:25 Reactive Lymphs % 1.3 % (0.0-5.0) 04/10/18 06:25 Reactive Lymphs # 0.2 # k/uL (0.0-0.8) 04/10/18 06:25 Sodium 141 mmol/L (136-145) 04/10/18 06:25 Potassium 4.2 mmol/L (3.5-5.1) 04/10/18 06:25 Chloride 106 mmol/L (98-107) 04/10/18 06:25 Total Carbon Dioxide 24 mmol/L (22-29) 04/10/18 06:25 BUN 45 mg/dL (6-20) H 04/10/18 06:25 Creatinine 2.17 mg/dL (0.40-1.50) H 04/10/18 06:25 Estimated GFR mL/min 26 L 04/10/18 06:25 Glucose 174 mg/dL (70-99 Fasting) H 04/10/18 06:25 Calcium 8.3 mg/dL (8.6-10.2) L 04/10/18 06:25 Total Bilirubin <0.3 mg/dL (<1.2) 04/10/18 06:25 AST 13 U/L (<40) 04/10/18 06:25 ALT 6 U/L (<42) 04/10/18 06:25 Alkaline Phosphatase 61 U/L (40-129) 04/10/18 06:25 Total Protein 6.1 g/dL (6.0-8.5) 04/10/18 06:25 Albumin 2.7 g/dL (3.5-5.2) L 04/10/18 06:25 Assessment/Plan - Assessment/Plan (1) Gait disturbance Status: Acute (2) CAD (coronary artery disease) Status: Acute Qualifiers: Coronary Disease-Associated Artery/Lesion type: [place] artery [place] vs. transplanted heart: [place] heart Associated angina: without angina Qualified Code(s): I25.10 - Atherosclerotic heart disease of [place] coronary artery without angina pectoris (3) CHF (congestive heart failure) Status: Chronic Qualifiers: Heart failure type: combined systolic and diastolic Assessment: stable (4) DM type 2 causing CKD stage 3 Status: Chronic Assessment: stable (5) CKD (chronic kidney disease) stage 3, GFR 30-59 ml/min Status: Chronic (6) Osteoarthritis Status: Chronic Assessment: seems to be limiting his progress (7) Status post CVA Status: Chronic Assessment: stable (8) Anemia Status: Chronic (9) UTI (urinary tract infection) Status: Acute Qualifiers: Urinary tract infection type: catheter-associated UTI Indwelling urinary catheter type: indwelling urethral catheter Encounter type: initial encounter Qualified Code(s): T83.511A - Infection and inflammatory reaction due to indwelling urethral catheter, initial encounter; N39.0 - Urinary tract infection , site not specified
== END 2018-04-18 11:15 | disposition home or self-care (01) | DRG 92 ==
LOC: SOUTH 15:05
PROVIDERS: ADMIT Family Medicine; ATTEND Family Medicine
DX: R26.9 Unspecified abnormalities of gait and mobility (principal); I25.10 Atherosclerotic heart disease of native coronary artery without angina pectoris; I50.9 Heart failure, unspecified; E11.22 Type 2 diabetes mellitus with diabetic chronic kidney disease; N18.3 Chronic kidney disease, stage 3 (moderate); N39.0 Urinary tract infection, site not specified; E03.9 Hypothyroidism, unspecified; M15.9 Polyosteoarthritis, unspecified
CPT/HCPCS: 36415; 71045; 80053; 85025; J1815